=== PATIENT | female | born 1965 | race Hispanic/Latino ===

== ENCOUNTER 2020-12-09 09:40 | Emergency (ER) | payer OTHER ==
[~2020-12-09] VITALS: Ht 154.9 cm; Wt 97.5 kg
== END 2020-12-09 10:30 | disposition home or self-care (01) ==
LOC: ER 09:45
DX: I10 Essential (primary) hypertension (principal); F41.9 Anxiety disorder, unspecified
CPT/HCPCS: 99282

== ENCOUNTER 2020-12-22 09:24 | Emergency (ER) | payer OTHER ==
[~2020-12-22] VITALS: Ht 154.9 cm; Wt 106.6 kg
[2020-12-22 09:46] VITALS: BP 146/86
== END 2020-12-22 10:00 | disposition home or self-care (01) ==
LOC: ER 09:47
DX: F41.0 Panic disorder [episodic paroxysmal anxiety] (principal); I10 Essential (primary) hypertension; F41.9 Anxiety disorder, unspecified
CPT/HCPCS: 99283

== ENCOUNTER 2024-06-16 08:02 | Emergency (ER) | payer OTHER ==
[~2024-06-16] VITALS: Ht 154.9 cm; Wt 98.9 kg
[~2024-06-16 08:02] MED LIST: BENICAR20 MG PO; BENICAR5 MG PO; HYDROCHLOROTH12.5 MG PO; ZEBETA10 MG PO
[2024-06-16 08:05] VITALS: TEMP 98.5
[2024-06-16 08:13] LABS: BASOPHILS # (AUTO) 0.1 (0.0-0.1); BASOPHILS % 0.6 % (0.0-1.0); EOSINOPHILS # (AUTO) 0.2 (0.0-0.4); EOSINOPHILS % 1.8 % (0.0-6.0); HEMATOCRIT 45.1 % (34.2-44.1); HEMOGLOBIN 14.9 g/dL (12.0-16.0); LYMPHOCYTES # (AUTO) 2.2 (1.0-3.2); LYMPHOCYTES % 21.3 % (18.0-39.1); MEAN CORPUSCULAR HEMOGLOBIN 30.2 pg (28-32); MEAN CORPUSCULAR VOLUME 91.5 fL (81-99); MONOCYTES # (AUTO) 0.4 (0.2-0.8); NEUTROPHILS # (AUTO) 7.5 (2.1-6.9); NEUTROPHILS % 71.6 % (38.7-80.0); PLATELET COUNT 290 x10e3/uL (140-360); RED BLOOD COUNT 4.93 x10e6/uL (3.6-5.1); RED CELL DISTRIBUTION WIDTH 12.6 % (11.7-14.4); WHITE BLOOD COUNT 10.52 x10e3/uL (4.8-10.8)
[2024-06-16] MEDS: ONDANSETRON HCL INJ 2MG/ML 2ML 2 MG/ML VIAL IV STA (08:22)
[2024-06-16] MEDS: SODIUM CHLORIDE 0.9% 1000ML 1,000 ML IV ONE (08:22)
[2024-06-16] MEDS: Morphine 4mg INJECTION 4 MG/ML INJ IV ONE (08:23)
[2024-06-16 08:47] LABS: ALBUMIN 3.8 g/dL (3.5-5.0); ALBUMIN/GLOBULIN RATIO 1.1 (0.8-2.0); ANION GAP 14.8 mmol/L (8-16); BILIRUBIN,TOTAL 0.6 mg/dL (0.2-1.2); CALCIUM 10.6 mg/dL (8.4-10.2); CREATININE, SERUM 0.83 mg/dL (0.57-1.11); POTASSIUM 3.8 mmol/L (3.5-5.1); TOTAL PROTEIN 7.3 g/dL (6.5-8.1)
[2024-06-16 09:02] LABS: BILIRUBIN,URINE SMALL (NEGATIVE); CLARITY,URINE CLOUDY (CLEAR); COLOR,URINE YELLOW (YELLOW); GLUCOSE, URINE NEGATIVE (NEGATIVE); KETONES,URINE 2+ (NEGATIVE); LEUKOCYTE ESTERASE ,URINE NEGATIVE (NEGATIVE); NITRITE,URINE NEGATIVE (NEGATIVE); PH,URINE 6.5 (5 - 7); PROTEIN,URINE DIPSTICK 1+ (NEGATIVE); URINE UROBILINOGEN 0.2 mg/dL (0.2 - 1)
[2024-06-16] MEDS ORDERED: SODIUM CHLORIDE 0.9% 100 ML ONE (09:04)
[2024-06-16] MEDS ORDERED: IOPAMIDOL 370 MG/ML 100 ML INFUS..BTL INJ ONE (09:04)
[2024-06-16 09:27] LABS: BACTERIA,URINE MODERATE /HPF; EPITHELIAL CELLS,URINE MANY /LPF; RBC,URINE 0-5 /HPF (0-5); WBC,URINE (MAN) 0-5 /HPF (0-5)
[2024-06-16] MEDS: KETOROLAC TROMETHAMINE 30 MG/ML VIAL IV STA (10:50)
[2024-06-16 11:00] VITALS: PULSE 87; RESP 16
[2024-06-16 12:32] VITALS: BP 129/70; PULSE 87; RESP 16; O2SAT 95
== END 2024-06-16 12:30 | disposition other institution (70) ==
LOC: ER 08:07
DX: R10.31 Right lower quadrant pain (principal); J90 Pleural effusion, not elsewhere classified; I31.39 Other pericardial effusion (noninflammatory); Q82.0 Hereditary lymphedema; I10 Essential (primary) hypertension; E78.5 Hyperlipidemia, unspecified; F41.9 Anxiety disorder, unspecified
CPT/HCPCS: 36415; 74177; 80053; 81001; 83690; 83880; 85025; 99284; J1885; J2270; J2405; J7030; J7050; Q9967

== ENCOUNTER 2024-09-05 15:28 | Emergency (ER) | payer OTHER ==
[~2024-09-05] VITALS: Ht 154.9 cm; Wt 86.2 kg
[2024-09-05 15:57] VITALS: TEMP 98.1
[2024-09-05] MEDS ORDERED: SODIUM CHLORIDE FLUSH 10 ML SYR IV PRN (16:00)
[2024-09-05 16:10] LABS: BASOPHILS % 0.5 % (0.0-1.0); EOSINOPHILS # (AUTO) 0.2 (0.0-0.4); EOSINOPHILS % 1.9 % (0.0-6.0); HEMATOCRIT 45.1 % (34.2-44.1); LYMPHOCYTES # (AUTO) 3.2 (1.0-3.2); LYMPHOCYTES % 37.3 % (18.0-39.1); MEAN CORPUSCULAR HEMOGLOBIN 29.6 pg (28-32); MEAN CORPUSCULAR HGB CONC 33.3 g/dL (31-35); MONOCYTES # (AUTO) 0.4 (0.2-0.8); MONOCYTES % 4.5 % (4.4-11.3); NEUTROPHILS # (AUTO) 4.7 (2.1-6.9); NEUTROPHILS % 55.4 % (38.7-80.0); PLATELET COUNT 298 x10e3/uL (140-360); RED BLOOD COUNT 5.07 x10e6/uL (3.6-5.1); RED CELL DISTRIBUTION WIDTH 12.5 % (11.7-14.4); WHITE BLOOD COUNT 8.51 x10e3/uL (4.8-10.8)
[2024-09-05 16:21] LABS: ALBUMIN 4.5 g/dL (3.5-5.0); ALBUMIN/GLOBULIN RATIO 1.2 (0.8-2.0); ANION GAP 19.2 mmol/L (8-16); BILIRUBIN,TOTAL 0.7 mg/dL (0.2-1.2); CALCIUM 11.3 mg/dL (8.4-10.2); CREATININE, SERUM 0.77 mg/dL (0.57-1.11); TOTAL PROTEIN 8.2 g/dL (6.5-8.1)
[2024-09-05 16:22] LABS: POTASSIUM 3.2 mmol/L (3.5-5.1)
[2024-09-05 16:27] LABS: TROPONIN I 0.001 ng/mL (0-0.300)
[2024-09-05] MEDS: LORAZEPAM INJ 2 MG/ML VIAL IV ONE (17:11)
[2024-09-05 17:14] VITALS: PULSE 63; RESP 16; O2SAT 100
[2024-09-05] MEDS ORDERED: CLONIDINE HCL0.1 MG PO (18:03)
[2024-09-05 19:32] LABS: EOSINOPHILS % (MANUAL) 2 % (0-7); LYMPHOCYTES % (MANUAL) 32 % (19-48); MONOCYTES % (MANUAL) 5 % (3.4-9.0); NEUTROPHILS % (MANUAL) 56 % (40-74); PLATELET ESTIMATE ADEQUATE; PLATELET MORPHOLOGY COMMENT NORMAL; RBC MORPHOLOGY COMMENT NORMAL; REACTIVE LYMPHOCYTES 5
== END 2024-09-05 18:46 | disposition home or self-care (01) ==
LOC: ER 15:51
DX: R06.02 Shortness of breath (principal); I16.0 Hypertensive urgency; I10 Essential (primary) hypertension; E78.5 Hyperlipidemia, unspecified; F41.9 Anxiety disorder, unspecified; R94.31 Abnormal electrocardiogram [ECG] [EKG]
CPT/HCPCS: 36415; 71045; 80053; 83880; 84484; 85025; 85379; 93005; 94760; 99284; J2060